=== PATIENT | female | born 2000 | race Two or more races ===

== ENCOUNTER 2020-12-23 09:52 | Emergency (ER) | payer SELFPAY ==
[~2020-12-23] VITALS: Ht 160 cm; Wt 46.4 kg
--- NOTE | 2020-12-23 10:05 | NUR ---
INITIAL PT CONTACT. PT PRESENTS TO ED C/O RIGHT FLANK AND RIGHT LOWER QUAD ABDOMINAL PAIN FOR 5 DAYS. PT STATES SHE HAS NAUSEA THIS AM AND LEFT SIDED FLANK PAIN. PT SEEN AT [facility] YESTERDAY AND DX WITH UTI, BEGAN ABX THIS AM. PT DENIES ANY OTHER COMPLAINTS AT THIS TIME. PT AMBULATORY WITH STEADY GAIT TO BATHROOM TO PROVIDE URINE SAMPLE. PT UPRIGHT ON GURNEY, NADN, VSS. PT DENIES ANY NEEDS AT THIS TIME. AWAITING ERP. MOTHER AT BEDSIDE.
--- NOTE | 2020-12-23 10:35 | NUR ---
ERP AT BEDSIDE
[2020-12-23 11:19] LABS: ALANINE AMINOTRANSFERASE 20 U/L (12-78); ALBUMIN 3.8 g/dL (3.4-5.0); ANION GAP 7 mmol/L (5-15); CALCIUM 8.9 mg/dL (8.5-10.1); CHLORIDE 104 mmol/L (98-107); CREATININE 0.86 mg/dL (0.55-1.02)
[2020-12-23 11:23] LABS: ALKALINE PHOSPHATASE 69 U/L (45-117); BILIRUBIN,TOTAL 0.4 mg/dL (0.2-1.0); TOTAL PROTEIN 7.9 g/dL (6.4-8.2)
[2020-12-23 11:26] LABS: BASOPHILS % (AUTO) 0 % (0-1); EOSINOPHILS % (AUTO) 0 % (1-7); LYMPHOCYTES % (AUTO) 10 % (22-44); MEAN CORPUSCULAR HEMOGLOBIN 30.2 pg (27.0-34.8); MEAN CORPUSCULAR HGB CONC 33.6 g/dL (32.4-35.8); MEAN PLATELET VOLUME 9.9 fL (7.4-10.4); MONOCYTES % (AUTO) 7 % (2-9); NEUTROPHILS % (AUTO) 83 % (42-75); PLATELET COUNT 202 x10^3/uL (130-400); RED BLOOD COUNT 4.19 x10^6/uL (3.82-5.3); RED CELL DISTRIBUTION WIDTH 13.4 % (9.6-15.2)
[2020-12-23 11:35] LABS: MD NO
--- NOTE | 2020-12-23 12:15 | NUR ---
PT RETURNED FROM IMAGING
[2020-12-23 13:00] LABS: MICROSCOPIC INDICATED
[2020-12-23 13:47] VITALS: BP 108/65
--- NOTE | 2020-12-23 13:52 | NUR ---
Patient given discharge instructions and they have confirmed that they understand the instructions. Patient ambulatory with steady gait.
== END 2020-12-23 13:56 | disposition home or self-care (01) ==
LOC: ED 10:53
DX: N30.00 Acute cystitis without hematuria (principal); N10 Acute pyelonephritis; R50.9 Fever, unspecified; R11.0 Nausea; R10.84 Generalized abdominal pain
CPT/HCPCS: 36415; 74176; 80053; 81001; 83690; 84703; 85025; 87077; 87086; 87186; 99285